=== PATIENT | female | born 1930 | race Caucasian/White ===

== ENCOUNTER 2017-02-11 17:54 | Emergency (ER) | payer OTHER ==
[~2017-02-11] VITALS: Ht 162.6 cm; Wt 68.0 kg
--- NOTE | ~2017-02-11 | EKG ---
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: [id number] : 1930 Requested By: Mina Castro Order Number: [id number] MD: Gio Jules Measurements Intervals [place] Rate: 86 P: 61 MA: 162 QRS: -56 QRSD: 133 T: 24 QT: 381 QTc: 456 Interpretive Statements Sinus rhythm Atrial premature complexes in couplets Right bundle branch block Inferior infarct, old Baseline wander in lead(s) V4 Compared to ECG 04/29/2007 09:29:29 Atrial premature complex(es) now present Electronically Signed On 02-13-2017 9:13:54 CDT by Gio Jules [email or web address] <ELECTRONICALLY SIGNED> By: Gio Jules MD, FACC 02/13/17 0913 1757 1757 Gio Jules MD, [facility] /EPI
[~2017-02-11 17:54] MED LIST: AVALIDE 150-121 EACH PO; NAPROSYN500 MG PO; NORCO 5-325 TA1 EACH PO
[2017-02-11] MEDS ORDERED: NAMENDA 10 MG T10 MG PO (18:23)
[2017-02-11 18:45] LABS: BASOPHILS 0.4 % (0.0-2.0); EOSINOPHILS 0.7 % (0.0-3.0); HEMATOCRIT 38.1 % (37.0-47.0); LYMPHOCYTES 12.4 % (24.0-44.0); MANUAL DIFF NO; MCH 31.6 pg (26.0-34.0); MCHC 34.1 g/dL (28.0-37.0); MCV 92.7 fL (80.0-100.0); MONOCYTES 6.7 % (1.0-8.0); PLATELET COUNT 404 thou/uL (150-400); POLYS 79.8 % (36.0-66.0); RDW 13.6 % (10.5-14.5); WBC 13.7 thou/uL (4.0-11.0)
[2017-02-11 18:54] LABS: ANION GAP 11 mmol/L (7-16); BUN 10 mg/dL (7-18); CALCIUM 9.6 mg/dL (8.5-10.1); CHLORIDE 98 mmol/L (98-107); CO2 25 mmol/L (21-32); CREATININE 0.9 mg/dL (0.6-1.0); GLUCOSE 115 mg/dL (74-106); POTASSIUM 3.7 mmol/L (3.5-5.1); SODIUM 134 mmol/L (136-145)
[2017-02-11 19:05] LABS: ALBUMIN 3.5 g/dL (3.4-5.0); ALKALINE PHOSPHATASE 115 U/L (46-116); NT-PRO BRAIN NAT PEPTIDE 1110 pg/mL (<300); SGOT 12 U/L (15-37); SGPT 8 U/L (30-65); TOTAL BILIRUBIN 0.8 mg/dL (<0.1-1.0); TOTAL PROTEIN 7.4 g/dL (6.4-8.2); TROPONIN-I < 0.04 ng/mL (<0.04-0.07)
[2017-02-11 20:25] VITALS: BP 135/75
== END 2017-02-11 20:26 | disposition home or self-care (01) ==
LOC: ER 17:54
PROVIDERS: Emergency Medicine
DX: R55 Syncope and collapse (principal); F03.90 Unspecified dementia, unspecified severity, without behavioral disturbance, psychotic disturbance, mood disturbance, and anxiety; I10 Essential (primary) hypertension; F10.99 Alcohol use, unspecified with unspecified alcohol-induced disorder; Z88.0 Allergy status to penicillin

== ENCOUNTER → 2017-05-01 | Outpatient (CLI) | payer OTHER ==
[~2017-05-01] MED LIST changes: +NAMENDA 10 MG T10 MG PO
== END ==
LOC: HYPER 07:03
DX: S81.801A Unspecified open wound, right lower leg, initial encounter (principal); F03.90 Unspecified dementia, unspecified severity, without behavioral disturbance, psychotic disturbance, mood disturbance, and anxiety; X58.XXXA Exposure to other specified factors, initial encounter; Y93.89 Activity, other specified; Y92.89 Other specified places as the place of occurrence of the external cause; Y99.8 Other external cause status

== ENCOUNTER → 2017-05-17 | Outpatient (CLI) | payer OTHER | LOC: HYPER 07:15 | DX: L97.812 Non-pressure chronic ulcer of other part of right lower leg with fat layer exposed (principal); F03.90 Unspecified dementia, unspecified severity, without behavioral disturbance, psychotic disturbance, mood disturbance, and anxiety ==

== ENCOUNTER → 2017-06-01 | Outpatient (CLI) | payer OTHER | LOC: HYPER 06:55 | DX: L97.812 Non-pressure chronic ulcer of other part of right lower leg with fat layer exposed (principal); F03.90 Unspecified dementia, unspecified severity, without behavioral disturbance, psychotic disturbance, mood disturbance, and anxiety ==

== ENCOUNTER 2017-08-06 17:31 | Inpatient (IN) | payer OTHER ==
[~2017-08-06] VITALS: Ht 167.6 cm; Wt 66.0 kg
--- NOTE | ~2017-08-06 | HC ---
[facility] [place] [address] CONSULTATION Name: RUBIA JHAVERI Room #: 436-P [facility] IN M.R.#: [id number] Admission: 08/06/17 Attend Phys: Segundo Delgadillo DO Discharge: 08/10/17 Date of : [birth year] Report #: [id number] THIS REPORT FOR: //name// CC: Marquis Delgadillo DATE OF SERVICE: 08/09/2017 HISTORY OF PRESENT ILLNESS: An 87-year-old white female with history of premorbid dementia, who was found on the floor of her home. Downtime was uncertain. Her family apparently had to break the lock of the door to get in to check in on her. They typically check in on her every day. She was diagnosed with a fall with rhabdomyolysis. We are consulted regarding rehabilitation issues. PAST MEDICAL HISTORY: Includes hypertension, dementia. HABITS: No history of tobacco or alcohol abuse. MEDICATIONS: Please see the full medication listing. ALLERGIES: PENICILLIN. SOCIAL HISTORY: She lives alone, apparently premorbidly utilized a cane. She is noted to have private duty 3 days a week. Family is closely involved. They are looking at assisted living facility options although, the patient had refused and wanted to stay in her home. REVIEW OF SYSTEMS: Difficult with her mental status. PHYSICAL EXAMINATION: GENERAL: An 87-year-old rather fidgety white female in no obvious distress. VITAL SIGNS: Last recorded temperature is 97.8, pulse 66, respirations 18, blood pressure 129/60. NEUROLOGIC: Facies are symmetric. She has functional range of motion of both upper extremities. Strength is grade 4-/5. DTRs are trace to 1. Lower extremities, no focal calf swelling, functional range of motion with strength grade 4-/5. DTRs are trace to 1. Transfers are max assist. Gait was max assist 15 feet. ASSESSMENT: An 87-year-old white female with the following problem list: 1. Rhabdomyolysis after a fall onto the floor. 2. Dementia. 3. Generalized weakness. 4. Hypertension. [address] [address] CONSULTATION Name: RUBIA JHAVERI Room #: 436-P [facility] IN M.R.#: [id number] Admission: 08/06/17 Attend Phys: Segundo Delgadillo DO Discharge: 08/10/17 Date of : [birth year] Report #: [id number] PLAN: The patient does not meet medical necessity criteria for an acute in-hospital inpatient [address] [place] [address] rehabilitation stay. Note that family are looking at getting her placed and there is reference towards looking at assisted living facility options. Would agree with correction facility discharge as is being arranged. Thank you for asking us to assist in this patient's care. <ELECTRONICALLY SIGNED> By: Aiden Cuevas MD 08/14/17 1509 1459 0101 Aiden Cuevas MD /PMT
--- NOTE | ~2017-08-06 | EKG ---
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 : 1930 Requested By: Mina Castro Order Number: [id number] MD: Gio Jules Measurements Intervals [place] Rate: 72 P: [place]: QRS: -57 QRSD: 123 T: -21 QT: 458 QTc: 502 Interpretive Statements Sinus rhythm Right bundle branch block Inferior infarct, age indeterminate Compared to ECG 02/11/2017 17:57:55 Atrial premature complex(es) no longer present Electronically Signed On 08-07-2017 10:08:53 SALES ADMINISTRATION MANAGER by Gio Jules [email or web address] <ELECTRONICALLY SIGNED> By: Gio Jules MD, [facility] 08/07/17 1008 1853 52 Gio Jules MD, [facility] /EPI
[2017-08-06 17:40] VITALS: BP 153/88
[2017-08-06 18:50] LABS: URINE BILIRUBIN NEGATIVE (Negative); URINE BLOOD 1+ (Negative); URINE GLUCOSE-RANDOM* NEGATIVE (Negative); URINE KETONES TRACE (Negative); URINE LEUKOCYTES NEGATIVE (Negative); URINE NITRITE POSITIVE (Negative); URINE PROTEIN (DIPSTICK) 1+ (Negative); URINE SPECIFIC GRAVITY 1.025 (1.005-1.035); URINE UROBILINOGEN 0.2 E.U./dl (0.2-1.0)
[2017-08-06 18:52] LABS: URINE CLARITY HAZY; URINE COLOR YELLOW
[2017-08-06 18:54] LABS: BACTERIA >30 Many /HPF (None Seen); CASTS None Seen /LPF (None Seen); CRYSTALS None Seen /LPF (None Seen); SQUAMOUS 0-3 Few /LPF (0-3); URINE RBC 0-2 Rare /HPF (0-2); URINE WBC 0-5 Rare /HPF (0-5)
[2017-08-06 19:05] LABS: HEMATOCRIT 41.4 % (37.0-47.0); HEMOGLOBIN 14.1 gm/dL (12.0-15.0); MCH 31.6 pg (26.0-34.0); MCHC 34.1 g/dL (28.0-37.0); MCV 92.5 fL (80.0-100.0); PLATELET COUNT 307 thou/uL (150-400); RBC 4.47 mil/uL (4.20-5.00); WBC 14.9 thou/uL (4.0-11.0)
[2017-08-06 19:13] LABS: CALCIUM 9.3 mg/dL (8.5-10.1); CREATININE 0.8 mg/dL (0.6-1.0); POTASSIUM 3.6 mmol/L (3.5-5.1)
[2017-08-06 19:28] LABS: ALBUMIN 3.4 g/dL (3.4-5.0); TOTAL BILIRUBIN 1.2 mg/dL (<0.1-1.0); TOTAL PROTEIN 7.1 g/dL (6.4-8.2); TROPONIN-I 0.06 ng/mL (<0.06)
[2017-08-06 19:43] LABS: ABSOLUTE NEUTROPHILS 13.1 thou/uL (1.4-8.2)
[2017-08-06] MEDS ORDERED: UNICOMPLEX M TA1 TA1 PO (20:14)
[2017-08-06 21:04] VITALS: BP 153/88
[2017-08-06 21:42] VITALS: BP 136/82
[2017-08-06 22:01] VITALS: BP 146/71
[2017-08-07 05:12] VITALS: BP 152/68
[2017-08-07 07:30] VITALS: BP 145/76
[2017-08-07 07:40] LABS: TROPONIN-I 0.05 ng/mL (<0.06)
[2017-08-07 15:42] VITALS: BP 131/76
[2017-08-07 20:04] VITALS: BP 150/78
[2017-08-08 04:00] VITALS: BP 138/74
[2017-08-08 05:33] LABS: ABSOLUTE NEUTROPHILS 9.4 thou/uL (1.4-8.2); BASOPHILS 0.4 % (0.0-2.0); EOSINOPHILS 0.4 % (0.0-3.0); HEMATOCRIT 34.2 % (37.0-47.0); LYMPHOCYTES 11.2 % (24.0-44.0); MCH 31.7 pg (26.0-34.0); MCHC 34.1 g/dL (28.0-37.0); MONOCYTES 6.1 % (1.0-8.0); PLATELET COUNT 274 thou/uL (150-400); POLYS 81.9 % (36.0-66.0); RBC 3.68 mil/uL (4.20-5.00); RDW 13.5 % (10.5-14.5); WBC 11.5 thou/uL (4.0-11.0)
[2017-08-08 05:35] LABS: HEMOGLOBIN 11.7 gm/dL (12.0-15.0)
[2017-08-08 05:58] LABS: ALBUMIN 2.6 g/dL (3.4-5.0); CALCIUM 8.1 mg/dL (8.5-10.1); CREATININE 0.8 mg/dL (0.6-1.0); POTASSIUM 3.4 mmol/L (3.5-5.1); TOTAL BILIRUBIN 0.7 mg/dL (<0.1-1.0); TOTAL PROTEIN 5.7 g/dL (6.4-8.2)
[2017-08-08 08:12] VITALS: BP 164/84
[2017-08-08 16:00] VITALS: BP 151/57
[2017-08-08 19:33] VITALS: BP 150/75
[2017-08-09 04:13] VITALS: BP 120/62
[2017-08-09 05:55] LABS: ABSOLUTE NEUTROPHILS 8.6 thou/uL (1.4-8.2); HEMATOCRIT 32.6 % (37.0-47.0); HEMOGLOBIN 11.1 gm/dL (12.0-15.0); LYMPHOCYTES 11.2 % (24.0-44.0); MCH 31.7 pg (26.0-34.0); MCV 93.2 fL (80.0-100.0); MONOCYTES 6.8 % (1.0-8.0); PLATELET COUNT 257 thou/uL (150-400); RBC 3.49 mil/uL (4.20-5.00); RDW 13.3 % (10.5-14.5); WBC 10.8 thou/uL (4.0-11.0)
[2017-08-09 06:10] LABS: ALBUMIN 2.4 g/dL (3.4-5.0); CALCIUM 7.8 mg/dL (8.5-10.1); CREATININE 0.6 mg/dL (0.6-1.0); POTASSIUM 3.4 mmol/L (3.5-5.1); TOTAL BILIRUBIN 0.7 mg/dL (<0.1-1.0); TOTAL PROTEIN 4.9 g/dL (6.4-8.2)
[2017-08-09 08:00] VITALS: BP 129/60
[2017-08-09] MEDS ORDERED: ACETAMINOPHEN325 M1 PO (11:52)
[2017-08-09] MEDS ORDERED: KEFLEX500 M2 PO (12:00)
[2017-08-09] MEDS ORDERED: NORVASC10 MG PO (12:01)
[2017-08-09 14:55] VITALS: BP 133/104
[2017-08-09 20:00] VITALS: BP 149/73
[2017-08-10 05:20] VITALS: BP 137/67
[2017-08-10 08:04] VITALS: BP 151/72
[2018-03-14] MEDS ORDERED: ACYCLOVIR 400400 MG PO (16:31)
== END 2017-08-10 13:17 | DRG 564 ==
LOC: ER 17:31 → 4S 20:23 → EROBS 20:23 → 4S 21:42
PROVIDERS: Emergency Medicine; Internal Medicine Geriatric Medicine; Nurse Practitioner Acute Care; Nurse Practitioner Family
DX: T79.6XXA Traumatic ischemia of muscle, initial encounter (principal); E43 Unspecified severe protein-calorie malnutrition; G93.40 Encephalopathy, unspecified; Z60.2 Problems related to living alone; I10 Essential (primary) hypertension; F03.90 Unspecified dementia, unspecified severity, without behavioral disturbance, psychotic disturbance, mood disturbance, and anxiety; D72.829 Elevated white blood cell count, unspecified; E87.6 Hypokalemia; Z79.899 Other long term (current) drug therapy; W18.39XA Other fall on same level, initial encounter; Z28.21 Immunization not carried out because of patient refusal; Z88.0 Allergy status to penicillin; Z68.23 Body mass index [BMI] 23.0-23.9, adult
CPT/HCPCS: 10102

== ENCOUNTER 2017-09-28 07:00 | Emergency (ER) | payer OTHER ==
[~2017-09-28] VITALS: Ht 170.2 cm; Wt 58.1 kg
[2017-09-28 07:00] VITALS: BP 137/84
[~2017-09-28 07:00] MED LIST changes: +ACETAMINOPHEN325 M1 PO; +KEFLEX500 M2 PO; +NORVASC10 MG PO; +UNICOMPLEX M TA1 TA1 PO
[2018-03-14] MEDS ORDERED: ACYCLOVIR 400400 MG PO (16:31)
== END 2017-09-28 08:34 ==
LOC: ER 07:00
DX: S00.03XA Contusion of scalp, initial encounter (principal); I10 Essential (primary) hypertension; F03.90 Unspecified dementia, unspecified severity, without behavioral disturbance, psychotic disturbance, mood disturbance, and anxiety; Z88.0 Allergy status to penicillin; W07.XXXA Fall from chair, initial encounter; Y93.89 Activity, other specified; Y92.89 Other specified places as the place of occurrence of the external cause; Y99.8 Other external cause status